=== PATIENT | male | born 1970 | race Native Hawaiian/Other Pacific Islander ===

== ENCOUNTER 2019-12-23 09:45 | Outpatient (CLI) | payer OTHER ==
[~2019-12-23 09:45] MED LIST: CATAPRES-T0.1 MG/24 TD; CELEXA10 MG PO; CLON1TAB18 PO; LISI20TA11 PO; TAMS0.4C PO
== END 2019-12-23 23:30 | disposition home or self-care (01) ==
LOC: RAD 09:45
DX: F41.8 Other specified anxiety disorders (principal); I10 Essential (primary) hypertension; K43.2 Incisional hernia without obstruction or gangrene; M19.90 Unspecified osteoarthritis, unspecified site; M51.26 Other intervertebral disc displacement, lumbar region; M79.673 Pain in unspecified foot

== ENCOUNTER 2020-03-15 11:13 | Outpatient (CLI) | payer OTHER | END 2020-03-15 22:13 | disposition home or self-care (01) | LOC: RAD 11:13 | PROVIDERS: ATTEND Internal Medicine | DX: F41.8 Other specified anxiety disorders (principal); I10 Essential (primary) hypertension; Z98.890 Other specified postprocedural states; M19.90 Unspecified osteoarthritis, unspecified site; M51.26 Other intervertebral disc displacement, lumbar region; M79.671 Pain in right foot ==